=== PATIENT | female | born 1975 | race Caucasian/White ===

== ENCOUNTER 2021-10-19 18:15 | Emergency (ER) | payer OTHER ==
[~2021-10-19] VITALS: Ht 157.5 cm; Wt 57.2 kg
[~2021-10-19 18:15] MED LIST: IRON325 ( 65 ) PO; NIFE60TA3 PO; SYNTHROID50 MCG PO; Synthroid 150MCG TABLET PO
[2021-10-19] MEDS ORDERED: SYNTHROID112 MCG PO (18:41)
== END 2021-10-19 21:26 | disposition home or self-care (01) ==
LOC: ER 18:15
DX: U07.1 COVID-19 (principal); Z88.6 Allergy status to analgesic agent

== ENCOUNTER 2022-12-11 12:24 | Emergency (ER) | payer OTHER ==
[~2022-12-11] VITALS: Ht 157.5 cm; Wt 69.9 kg
[~2022-12-11 12:24] MED LIST changes: +SYNTHROID112 MCG PO
== END 2022-12-11 15:02 | disposition home or self-care (01) ==
LOC: ER 12:24
DX: R53.81 Other malaise (principal); I10 Essential (primary) hypertension; Z88.6 Allergy status to analgesic agent